=== PATIENT | female | born 1945 | race Hispanic/Latino ===

== ENCOUNTER → 2017-12-09 | Outpatient (CLI) | payer OTHER ==
[~2017-12-09] MED LIST: ALBU18HF7 IH; AMLO2.5T PO; BENA40TA3 PO; CALC-1038 PO; CELE100C97 PO; FLUT16H NASAL; IOPAMIDOL-370 75 ML VIAL IV ONE; LEVO50TA11 PO; LEVO5TAB13 PO; METO50TA18 PO; OMEP20CA10 PO; SIMV40TA5 PO; VITA1CAP85 PO
== END | disposition home or self-care (01) ==
LOC: RAH 07:50
PROVIDERS: ATTEND Family Medicine
DX: K57.30 Diverticulosis of large intestine without perforation or abscess without bleeding (principal); R19.5 Other fecal abnormalities
CPT/HCPCS: 74178; Q9967

== ENCOUNTER → 2018-02-23 | Outpatient (CLI) | payer OTHER ==
[~2018-02-23] MED LIST changes: -BENA40TA3 PO; +BENA40TA9 PO; -IOPAMIDOL-370 75 ML VIAL IV ONE
== END | disposition home or self-care (01) ==
LOC: RAH 11:26
PROVIDERS: ATTEND Family Medicine
DX: E04.2 Nontoxic multinodular goiter (principal); E03.9 Hypothyroidism, unspecified
CPT/HCPCS: 76536

== ENCOUNTER → 2018-04-28 | Outpatient (CLI) | payer OTHER ==
[~2018-04-28] VITALS: Ht 167.6 cm; Wt 80.7 kg
[~2018-04-28] MED LIST changes: +REGADENOSON 0.4 MG/5 ML PF SYG IVP SCH
== END | disposition home or self-care (01) ==
LOC: SHCH 09:07
PROVIDERS: ATTEND Internal Medicine Cardiovascular Disease
DX: I20.9 Angina pectoris, unspecified (principal)
CPT/HCPCS: 78452; 93017; 96374; A9500 ×2; J2785

== ENCOUNTER → 2019-09-20 | Outpatient (CLI) | payer OTHER ==
[~2019-09-20] MED LIST changes: -AMLO2.5T PO; +AMLO2.5T4 PO; +OMEP-50 PO; -OMEP20CA10 PO; -REGADENOSON 0.4 MG/5 ML PF SYG IVP SCH; +SIMV-46 PO; -SIMV40TA5 PO
== END | disposition home or self-care (01) ==
LOC: RAH 10:40
PROVIDERS: ATTEND Orthopaedic Surgery
DX: S83.241A Other tear of medial meniscus, current injury, right knee, initial encounter (principal); M25.461 Effusion, right knee; X58.XXXA Exposure to other specified factors, initial encounter; Y93.89 Activity, other specified; Y92.89 Other specified places as the place of occurrence of the external cause; Y99.8 Other external cause status
CPT/HCPCS: 73721

== ENCOUNTER 2019-12-13 06:07 | Day surgery (SDC) | payer OTHER ==
[2019-12-05 13:26] LABS: BASOPHILS % (AUTO) 0.5 % (0.0-5.0); EOSINOPHILS % (AUTO) 5.5 % (0.0-8.0); HEMATOCRIT 39.4 % (36-48); LYMPHOCYTES % (AUTO) 37.9 % (21.0-51.0); MEAN CORPUSCULAR HEMOGLOBIN 28.9 pg (27.0-33.0); MEAN CORPUSCULAR HGB CONC 31.7 g/dL (32.0-36.0); MEAN CORPUSCULAR VOLUME 91.2 fL (79-99); MONOCYTES % (AUTO) 5.9 % (3.0-13.0); PLATELET COUNT (AUTO) 154 K/uL (130-400); RED BLOOD CELL COUNT(AUTO) 4.32 MIL/uL (4.00-5.50); RED CELL DISTRIBUTION WIDTH 13.8 % (11.0-15.5); WHITE BLOOD COUNT (AUTO) 5.5 K/uL (4.8-10.8)
[2019-12-05 13:34] LABS: CREATININE 0.7 mg/dL (0.5-1.5); POTASSIUM 4.3 mmol/L (3.5-5.1)
[2019-12-05 14:19] VITALS: BP 141/71
[2019-12-13] VITALS (13 sets, daily range): BP systolic 54–129; BP diastolic 52–75
[~2019-12-13] VITALS: Ht 166.4 cm; Wt 82.6 kg
[~2019-12-13 06:07] MED LIST changes: -CALC-1038 PO; +DESMOPRESSIN ACETATE IJ SCH; +LACTATED RINGERS 1000ML 1,000 ML IV SCH; -OMEP-50 PO; +OMEP20CA12 PO; +ROSU40TA21 PO; -SIMV-46 PO; +SODIUM CHLORIDE 0.9% IJ SCH; -VITA1CAP85 PO
[2019-12-13] MEDS: CEFAZOLIN SODIUM 1 GM VIAL IVP SCH ×2 (07:00→08:50)
--- NOTE | 2019-12-13 07:00 | NUR ---
POTENTIAL FOR INFECTION: NO SHAVING NEEDED TO RIGHT LEG / RIGHT KNEE ASSESSED PER CHRISTINE METCALF. WIPED WITH JATINDER: 2% CHLORHEXIDINE GLUCONATE CLOTH PATIENTS PRE-OP SKIN PREP PER CHRISTINE METCALF.
[2019-12-13] MEDS ORDERED: BUPIVACAINE/EPI/PF 0.25% 30ML VIAL IJ ONE (07:23)
[2019-12-13] MEDS ORDERED: PROPOFOL 10 MG/ML 20ML VIAL IV ONE ×2 (07:45→08:32)
[2019-12-13] MEDS ORDERED: LIDOCAINE PF 2% 5ML ABBOJECT ONE ×2 (07:45→08:31)
[2019-12-13] MEDS ORDERED: SODIUM CHLORIDE 0.9% 1000ML 1,000 ML IV ONE (08:06)
[2019-12-13] MEDS ORDERED: DEXAMETHASONE SOD PHOSPHATE 10MG/ML 1ML VIAL ONE (08:31)
[2019-12-13] MEDS ORDERED: MIDAZOLAM HCL 1 MG/ML 2ML VIAL ONE (08:32)
[2019-12-13] MEDS ORDERED: ONDANSETRON HCL 4 MG/2 ML VIAL ONE (08:32)
[2019-12-13] MEDS ORDERED: FENTANYL CITRATE PF 50 MCG/1 ML 2ML VIAL ONE (08:32)
[2019-12-13] MEDS ORDERED: EPHEDRINE SULFATE 50 MG/ML AMPULE ONE (08:41)
[2019-12-13] MEDS ORDERED: GLYCOPYRROLATE 1 MG/5 ML SYRINGE ONE (09:31)
[2019-12-13] MEDS ORDERED: NEOSTIGMINE 5MG/5ML SYR IV ONE (09:31)
[2019-12-13] MEDS ORDERED: MEPERIDINE-PF 25 MG/ML SYG ONE (10:11)
--- NOTE | 2019-12-13 10:35 | NUR ---
PT ARRIVED TO DAY PATIENT VIA STRETCHER BY DAVONTE ARAUJO. PATIENT [id number], RESPIRATIONS UNLABORED, VITAL SIGNS STABLE. PATIENT DENIES ANY PAIN AT THIS TIME. DRESSING TO LEFT L=KNEE WITH JAZMIN WRAP IS DRY/INTACT. Addendum: 12/13/19 at 1331 by BARBARA ESPINOZA RN RN DRESSING TO RIGHT KNEE, NOT LEFT KNEE
--- NOTE | 2019-12-13 11:20 | NUR ---
PATIENT DISCHARGED FROM FACILITY VIA WHEELCHAIR BY BARBARA. PATIENT ASSISTED INTO PRIVATE VEHICLE DRIVEN BY DAUGHTER.
== END 2019-12-13 11:20 | disposition home or self-care (01) ==
LOC: DAH 06:07
PROVIDERS: ATTEND Orthopaedic Surgery
DX: M17.11 Unilateral primary osteoarthritis, right knee (principal); M25.561 Pain in right knee; M23.221 Derangement of posterior horn of medial meniscus due to old tear or injury, right knee; M23.261 Derangement of other lateral meniscus due to old tear or injury, right knee; I10 Essential (primary) hypertension; E11.9 Type 2 diabetes mellitus without complications; K21.9 Gastro-esophageal reflux disease without esophagitis; E78.00 Pure hypercholesterolemia, unspecified; Z79.2 Long term (current) use of antibiotics; Z79.899 Other long term (current) drug therapy; Z72.89 Other problems related to lifestyle; Z98.890 Other specified postprocedural states; Z90.710 Acquired absence of both cervix and uterus; Z90.49 Acquired absence of other specified parts of digestive tract; Z82.49 Family history of ischemic heart disease and other diseases of the circulatory system; Z80.1 Family history of malignant neoplasm of trachea, bronchus and lung; Z80.3 Family history of malignant neoplasm of breast; Z83.3 Family history of diabetes mellitus
CPT/HCPCS: 29880; 36415; 80048; 82948 ×2; 85025; 93005; 96365; A4213; A4215; A4221; A4222; A4223 ×2; A4606; A4649 ×2; A4663; A4930; A5120; A6223; A6260; J0690; J1100; J2001 ×2; J2175; J2250; J2405; J2597; J2704 ×2; J2710; J3010; J3490 ×3; J7030; J7120

== ENCOUNTER 2021-03-24 05:59 | Day surgery (SDC) | payer MEDICARE ==
[~2021-03-24] VITALS: Ht 162.6 cm; Wt 81.6 kg
[~2021-03-24 05:59] MED LIST changes: -DESMOPRESSIN ACETATE IJ SCH; -LACTATED RINGERS 1000ML 1,000 ML IV SCH; -SODIUM CHLORIDE 0.9% IJ SCH
[2021-03-24] MEDS ORDERED: SODIUM CHLORIDE 0.9% IJ SCH (06:00)
[2021-03-24] MEDS ORDERED: DESMOPRESSIN ACETATE IJ SCH (06:00)
[2021-03-24] MEDS ORDERED: SODIUM CHLORIDE 0.9% 1000ML 1,000 ML IV ONE (06:14)
[2021-03-24 06:55] VITALS: BP 147/66
[2021-03-24] MEDS ORDERED: PROPOFOL 10 MG/ML 20ML VIAL IV ONE ×2 (08:26)
[2021-03-24 09:15] VITALS: BP 108/50
[2021-03-24 09:20] VITALS: BP 100/54
[2021-03-24 09:25] VITALS: BP 115/64
[2021-03-24 09:40] VITALS: BP 128/61
[2021-03-24 09:55] VITALS: BP 124/61
== END 2021-03-24 09:55 | disposition home or self-care (01) ==
LOC: ENDO 05:59 → DAH 05:59 → ENDO 09:55
PROVIDERS: ATTEND Internal Medicine Gastroenterology
DX: R19.4 Change in bowel habit (principal); K21.9 Gastro-esophageal reflux disease without esophagitis; Z20.822 Contact with and (suspected) exposure to COVID-19; K63.5 Polyp of colon; K31.7 Polyp of stomach and duodenum; K29.70 Gastritis, unspecified, without bleeding; K57.30 Diverticulosis of large intestine without perforation or abscess without bleeding; K63.3 Ulcer of intestine; I10 Essential (primary) hypertension; E03.9 Hypothyroidism, unspecified; E11.9 Type 2 diabetes mellitus without complications; E78.5 Hyperlipidemia, unspecified; M81.0 Age-related osteoporosis without current pathological fracture; D68.0 Von Willebrand disease; Z79.890 Hormone replacement therapy; Z79.899 Other long term (current) drug therapy; Z90.49 Acquired absence of other specified parts of digestive tract; Z90.710 Acquired absence of both cervix and uterus; Z90.89 Acquired absence of other organs; Z72.89 Other problems related to lifestyle; Z79.1 Long term (current) use of non-steroidal anti-inflammatories (NSAID); Z86.19 Personal history of other infectious and parasitic diseases
CPT/HCPCS: 43239; 43251; 45380; A4215 ×2; A4221; A4222; A4223; A4606; A4620; A4657; A4663; C9803; J2597; J2704 ×2; J7030; U0003

== ENCOUNTER → 2021-04-22 | Outpatient (CLI) | payer MEDICARE ==
[2021-04-22 12:45] LABS: BASOPHILS % (AUTO) 0.6 % (0.0-5.0); EOSINOPHILS % (AUTO) 4.8 % (0.0-8.0); HEMATOCRIT 36.9 % (36-48); LYMPHOCYTES % (AUTO) 37.7 % (21.0-51.0); MEAN CORPUSCULAR HEMOGLOBIN 29.1 pg (27.0-33.0); MEAN CORPUSCULAR VOLUME 91.1 fL (79-99); MONOCYTES % (AUTO) 7.7 % (3.0-13.0); PLATELET COUNT (AUTO) 134 K/uL (130-400); RED BLOOD CELL COUNT(AUTO) 4.05 MIL/uL (4.00-5.50); RED CELL DISTRIBUTION WIDTH 14.3 % (11.0-15.5); WHITE BLOOD COUNT (AUTO) 5.2 K/uL (4.8-10.8)
[2021-04-22 13:01] LABS: ALBUMIN 3.8 g/dL (3.5-5.0); BILIRUBIN,TOTAL 0.5 mg/dL (0.2-1.0); CREATININE 0.6 mg/dL (0.5-1.5); POTASSIUM 4.7 mmol/L (3.5-5.1); TOTAL PROTEIN, SERUM 7.3 g/dL (6.0-8.3)
== END | disposition home or self-care (01) ==
LOC: LAB 11:58
PROVIDERS: ATTEND Internal Medicine Gastroenterology
DX: R10.31 Right lower quadrant pain (principal)
CPT/HCPCS: 36415; 80053; 85025

== ENCOUNTER → 2021-04-24 | Outpatient (CLI) | payer MEDICARE ==
[~2021-04-24] MED LIST changes: +IOHEXOL-350 75 ML VIAL IV ONE
== END | disposition home or self-care (01) ==
LOC: RAH 09:00
PROVIDERS: ATTEND Internal Medicine Gastroenterology
DX: K57.30 Diverticulosis of large intestine without perforation or abscess without bleeding (principal); Z90.49 Acquired absence of other specified parts of digestive tract
CPT/HCPCS: 74178; Q9967

== ENCOUNTER → 2022-06-17 | Outpatient (CLI) | payer MEDICARE ==
[~2022-06-17] MED LIST changes: -BENA40TA9 PO; +BENA40TA92 PO; -IOHEXOL-350 75 ML VIAL IV ONE
== END | disposition home or self-care (01) ==
LOC: SHCH 09:42
PROVIDERS: ATTEND Internal Medicine Cardiovascular Disease
DX: I73.9 Peripheral vascular disease, unspecified (principal); I87.2 Venous insufficiency (chronic) (peripheral)
CPT/HCPCS: 93925; 93970

== ENCOUNTER 2022-11-14 15:01 | Emergency (ER) | payer MEDICARE ==
[~2022-11-14] VITALS: Ht 172.7 cm; Wt 81.6 kg
[2022-11-14 16:12] LABS: BASOPHILS % (AUTO) 0.6 % (0.0-5.0); EOSINOPHILS % (AUTO) 2.9 % (0.0-8.0); HEMATOCRIT 35.6 % (36-48); LYMPHOCYTES % (AUTO) 30.5 % (21.0-51.0); MEAN CORPUSCULAR HEMOGLOBIN 29.9 pg (27.0-33.0); MEAN CORPUSCULAR HGB CONC 33.1 g/dL (32.0-36.0); MEAN CORPUSCULAR VOLUME 90.4 fL (79-99); MONOCYTES % (AUTO) 6.6 % (3.0-13.0); NEUTROPHILS % (AUTO) 59.2 % (40.0-77.0); PLATELET COUNT (AUTO) 134 K/uL (130-400); RED BLOOD CELL COUNT(AUTO) 3.94 MIL/uL (4.00-5.50); RED CELL DISTRIBUTION WIDTH 13.9 % (11.0-15.5); WHITE BLOOD COUNT (AUTO) 4.8 K/uL (4.8-10.8)
[2022-11-14 16:21] LABS: CREATININE 0.9 mg/dL (0.5-1.5); POTASSIUM 4.3 mmol/L (3.5-5.1)
[2022-11-14 16:22] LABS: INR 0.97 (0.85-1.15); PROTHROMBIN TIME 10.6 SEC (9.6-11.6)
[2022-11-14 16:23] LABS: PARTIAL THROMBOPLASTIN TIME 25.5 SEC (26.3-35.5)
[2022-11-14 16:24] VITALS: BP 150/68
[2022-11-14 16:25] LABS: ALBUMIN 3.7 g/dL (3.5-5.0); TOTAL PROTEIN, SERUM 7.2 g/dL (6.0-8.3)
== END 2022-11-14 17:10 | disposition home or self-care (01) ==
LOC: EDH 15:01
DX: S63.051A Subluxation of other carpometacarpal joint of right hand, initial encounter (principal); S05.11XA Contusion of eyeball and orbital tissues, right eye, initial encounter; I10 Essential (primary) hypertension; M19.90 Unspecified osteoarthritis, unspecified site; Z79.899 Other long term (current) drug therapy; W01.0XXA Fall on same level from slipping, tripping and stumbling without subsequent striking against object, initial encounter; Y93.01 Activity, walking, marching and hiking; Y92.22 Religious institution as the place of occurrence of the external cause; Y99.8 Other external cause status
CPT/HCPCS: 36415; 70450; 72125; 73100; 80053; 85025; 85610; 85730; 93005

== ENCOUNTER → 2023-01-12 | Outpatient (CLI) | payer MEDICARE | END | disposition home or self-care (01) | LOC: RAH 11:23 | PROVIDERS: ATTEND Family Medicine | DX: R42 Dizziness and giddiness (principal); R51.9 Headache, unspecified; Z82.49 Family history of ischemic heart disease and other diseases of the circulatory system | CPT/HCPCS: 70544 ==

== ENCOUNTER → 2024-03-13 | Outpatient (CLI) | payer MEDICARE ==
[~2024-03-13] MED LIST changes: +CELE-146 PO; -CELE100C97 PO
== END | disposition home or self-care (01) ==
LOC: SHCH 08:11
PROVIDERS: ATTEND Internal Medicine Cardiovascular Disease
DX: I35.8 Other nonrheumatic aortic valve disorders (principal); I65.23 Occlusion and stenosis of bilateral carotid arteries; I20.0 Unstable angina; E78.5 Hyperlipidemia, unspecified
CPT/HCPCS: 93306; 93880

== ENCOUNTER → 2024-03-20 | Outpatient (CLI) | payer MEDICARE ==
[2024-03-20] MEDS: REGADENOSON 0.4 MG/5 ML PF SYG IVP ONE (12:05)
== END | disposition home or self-care (01) ==
LOC: SHCH 09:48
PROVIDERS: ATTEND Internal Medicine Cardiovascular Disease
DX: I20.0 Unstable angina (principal)
CPT/HCPCS: 78452; 96374; 93017; J2785; A9500 ×2

== ENCOUNTER → 2024-08-27 | Outpatient (CLI) | payer MEDICARE ==
[~2024-08-27] MED LIST changes: -ROSU40TA21 PO; +ROSU40TA88 PO
== END | disposition home or self-care (01) ==
LOC: SHCH 09:04
PROVIDERS: ATTEND Internal Medicine Cardiovascular Disease
DX: I87.1 Compression of vein (principal); I87.2 Venous insufficiency (chronic) (peripheral)
CPT/HCPCS: 93970

== ENCOUNTER → 2025-04-02 | Outpatient (CLI) | payer MEDICARE ==
--- NOTE | 2025-04-02 15:51 | HMCIMG ---
CHEST 2VWS HISTORY: Atherosclerosis of aorta COMPARISON: None FINDINGS: Frontal and lateral projections of the chest were obtained. There are prominent interstitial markings with possible superimposed infiltrates. The heart is borderline enlarged. No evidence of aortic calcification is seen. Degenerative changes are seen of the thoracolumbar spine. IMPRESSION: 1. There are prominent interstitial markings.
== END | disposition home or self-care (01) ==
LOC: RAH 12:48
PROVIDERS: ATTEND Internal Medicine
DX: J18.9 Pneumonia, unspecified organism (principal); M47.815 Spondylosis without myelopathy or radiculopathy, thoracolumbar region
CPT/HCPCS: 71046

== ENCOUNTER → 2025-05-22 | Outpatient (CLI) | payer MEDICARE ==
--- NOTE | 2025-05-23 04:28 | HMCIMG ---
EXAM: CR Left Knee, 3 views. CLINICAL HISTORY: Internal derangement. Pain. COMPARISON: None. FINDINGS: No acute fracture or aggressive appearing osseous lesion. Mild osteopenia. Medial compartment predominant mild tricompartmental knee joint osteoarthritis. There is no joint effusion appreciated. The soft tissues are unremarkable. IMPRESSION: No acute bony abnormality is evident. Mild osteopenia. Medial compartment predominant mild tricompartmental knee joint osteoarthritis. Recommend MRI of the left knee joint for an optimal evaluation of internal derangement. /[place]
== END | disposition home or self-care (01) ==
LOC: RAH 11:52
PROVIDERS: ATTEND Internal Medicine
DX: S83.282A Other tear of lateral meniscus, current injury, left knee, initial encounter (principal); M23.90 Unspecified internal derangement of unspecified knee; M25.562 Pain in left knee; M85.862 Other specified disorders of bone density and structure, left lower leg; M17.12 Unilateral primary osteoarthritis, left knee; X58.XXXA Exposure to other specified factors, initial encounter; Y93.89 Activity, other specified; Y92.89 Other specified places as the place of occurrence of the external cause; Y99.8 Other external cause status
CPT/HCPCS: 73562